=== PATIENT | female | born 1965 | race Caucasian/White ===

== ENCOUNTER → 2018-05-16 | Outpatient (CLI) | payer OTHER | END | disposition home or self-care (01) | LOC: CFH 11:11 | PROVIDERS: ATTEND Obstetrics & Gynecology Maternal & Fetal Medicine | DX: Z12.31 Encounter for screening mammogram for malignant neoplasm of breast (principal) | CPT/HCPCS: 77067 ==

== ENCOUNTER 2019-08-22 15:50 | Outpatient (CLI) | payer OTHER | END 2019-08-22 23:59 | disposition home or self-care (01) | LOC: CFH 15:50 | PROVIDERS: ATTEND Obstetrics & Gynecology Maternal & Fetal Medicine | DX: Z12.31 Encounter for screening mammogram for malignant neoplasm of breast (principal) | CPT/HCPCS: 77067 ==

== ENCOUNTER 2020-08-26 15:18 | Outpatient (CLI) | payer OTHER | END 2020-08-26 23:59 | disposition home or self-care (01) | LOC: CFH 15:18 | PROVIDERS: ATTEND Obstetrics & Gynecology Maternal & Fetal Medicine | DX: Z12.31 Encounter for screening mammogram for malignant neoplasm of breast (principal) | CPT/HCPCS: 77067 ==